=== PATIENT | female | born 1975 | race Two or more races ===

== ENCOUNTER 2023-03-13 23:45 | Emergency (ER) | payer BC, OTHER ==
[~2023-03-13] VITALS: Ht 172.7 cm; Wt 85.9 kg
[2023-03-14 01:30] VITALS: BP 119/95; PULSE 71; RESP 17; O2SAT 100
== END 2023-03-14 02:05 | disposition left against medical advice (07) ==
LOC: ER 23:45
DX: F41.9 Anxiety disorder, unspecified (principal); R42 Dizziness and giddiness; I10 Essential (primary) hypertension; Z53.21 Procedure and treatment not carried out due to patient leaving prior to being seen by health care provider